=== PATIENT | male | born 1950 | race Two or more races ===

== ENCOUNTER 2024-09-13 16:44 | Observation (INO) | payer OTHER, SELFPAY ==
[2024-09-13] VITALS (8 sets, daily range): BP systolic 162–204; BP diastolic 63–94; PULSE 60–67; RESP 17–97; TEMP 36.4–36.7; O2SAT 95–98; BMI 35.9
--- NOTE | 2024-09-13 17:49 | XR_ITS ---
Examination: CT brain head without contrast. 2-D sagittal coronal reconstructions Date and time of exam:September 13, 2024 1800 hrs. Indications: Sudden onset loss of vision left eye today CTDI: vol (mGy):55.4 DLP: (mGycm):1225 Technique: Multiple CT axial sections of the brain have been obtained, 5 mm slice thickness. Contrast has not been administered. 2-D sagittal, coronal reconstructions have been obtained Low dose protocols were performed. One or more of the following dose reduction techniques were used; automated exposure control, adjustment of the mA and/or KV according to patient size, use of iterative reconstruction technique. Findings: No significant ventricular enlargement. Intra-axial or extra-axial hemorrhage density is not seen. No mass effect or midline shift Basal cisterns are not remarkable. Fourth ventricle is midline. Cranial vault intact. Impression: Negative for acute hemorrhage, mass effect or midline shift As clinically warranted, brain MRI MRA without contrast follow-up would best assess for acute ischemic change as well as assess for left eye retinal detachment
--- NOTE | 2024-09-13 17:49 | EKG_ITS ---
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1950 Requested By: Leelee Denise ([facility]) Delmis Order Number: [id number] Reading MD: Leelee Denise ([facility]) Delmis Measurements Intervals [place] Rate: 60 P: 56 KS: 211 QRS: -27 QRSD: 97 T: 68 QT: 412 QTc: 414 Interpretive Statements SINUS RHYTHM WITH FIRST DEGREE AV BLOCK BORDERLINE LEFT AXIS DEVIATION [QRS AXIS < -20] POSSIBLE LEFT VENTRICULAR HYPERTROPHY [VOLTAGE CRITERIA PLUS LAE OR QRS WIDENING] NONSPECIFIC T-WAVE ABNORMALITY Compared to ECG 04/17/2023 09:30:32 First degree AV block now present T-wave abnormality now present Sinus bradycardia no longer present Intraventricular conduction delay no longer present /store/S0/[id number]/[id number].pdf
--- NOTE | 2024-09-13 17:49 | PD.EDRME ---
Rapid Medical Screening Exam [facility] Arrival date/time: 09/13/24 16:44 73-year-old male presents to the emergency department with complaints of visual changes to his left eye suddenly around 4 PM. History of hypertension. I have greeted and performed a focused initial assessment of this patient. Initial appropriate labs ordered at this time. A comprehensive ED assessment and evaluation of the patient and analysis of all test and completion of medical decision making process will be conducted by additional ED provider. Chief Complaint: Eye Problems Vital signs: Vital Signs Temperature 98.1 F 09/13/24 17:25 Pulse Rate 63 09/13/24 17:25 Respiratory Rate 19 09/13/24 17:25 Blood Pressure 174/76 H 09/13/24 17:25 Pulse Oximetry (%) 98 09/13/24 17:25 Oxygen Delivery Method Room Air 09/13/24 17:25
--- NOTE | 2024-09-13 18:25 | PC.NURSE ---
PT HERE WITH C/O SUDDEN ONSET LOSS OF VISION TO LEFT EYE AROUND 1600 TODAY. PT DESCRIBES IT WHEN YOU LOOK AT A BRIGHT LIGHT THEN AWAY, IT TAKES YOUR EYE TIME TO READJUST. ALSO STATES IT'S GETTING A LITTLE BETTER. 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
[2024-09-13 18:27] LABS: Collection Type, Urine Clean Catch
[2024-09-13 18:39] LABS: Basophils % (Auto) 1 % (0-2.5); Eosinophils # (Auto) 0.2 Thou/mm3 (0.0-0.5); Eosinophils % (Auto) 3 % (0-10); Hematocrit 47.5 % (41.0-53.0); Hemoglobin 16.3 g/dL (13.5-16.0); Immature Granulocytes % (Auto) 1 % (0-0); Immature Granulocytes Auto 0.05 Thou/mm3 (0.00-0.00); Lymphocytes # (Auto) 2.7 Thou/mm3 (1.0-4.8); Lymphocytes % (Auto) 31 % (10-50); Mean Corpuscular HGB Conc 34.3 g/dl (31.0-37.0); Mean Corpuscular Hemoglobin 29.4 pg (25.0-35.0); Mean Corpuscular Volume 86 fL (80-100); Monocytes # (Auto) 1.1 Thou/mm3 (0.0-0.8); Monocytes % (Auto) 13 % (0-12); Neutrophils # (Auto) 4.5 Thou/mm3 (1.8-7.7); Neutrophils % (Auto) 53 % (37-80); Nucleated Red Blood Cell % 0 /100 WBC (0); Platelet Count 211 Thou/mm3 (140-440); Red Blood Count 5.55 Miln/mm3 (4.50-5.90); White Blood Count 8.5 Thou/mm3 (3.8-10.6)
[2024-09-13 18:45] LABS: Bilirubin,Urine Negative (Negative); Blood,Urine Negative (Negative); Clarity,Urine Clear (Clear/Hazy); Color,Urine Yellow (Lt Yel-Yel); Glucose, Urine Negative (Negative); Hyaline Casts,Urine < 1 /hpf (0-1); Ketones,Urine Negative (Negative); Leukocyte Esterase,Urine Negative (Negative); Nitrite,Urine Negative (Negative); Protein,Urine 1+ (Neg - Trace); RBC,Urine 2 /hpf (0-3); Specific Gravity,Urine 1.022 (1.001-1.035); Squamous Epithelial Cell,Urine 1 /hpf (0-5); Urobilinogen,Urine Negative mg/dL (0.0-1.0); WBC,Urine 1 /hpf (0-5)
[2024-09-13 18:47] LABS: Alanine Aminotransferase 30 U/L (10-49); Albumin, Serum 4.6 gm/dL (3.4-4.8); Albumin/Globulin Ratio 1.5 (1.2-2.2); Alkaline Phosphatase 133 U/L (46-116); Anion Gap 6 (7-16); Aspartate Amino Transferase 13 U/L (0-34); BUN/Creatinine Ratio 11 Ratio (12-20); Bilirubin,Total 0.5 mg/dL (0.3-1.2); Blood Urea Nitrogen 14 mg/dL (9-23); Calcium 10.1 mg/dL (8.3-10.6); Calcium (Corrected) 10.1 mg/dL (8.5-10.1); Carbon Dioxide 26.2 mMol/L (20.0-31.0); Chloride 106 mMol/L (98-107); Creatinine (Component) 1.3 mg/dL (0.6-1.3); Estimated Creatinine Clearance 61.9 mL/min (>60); Globulin 3.1 gm/dL (2.3-3.5); Glucose 105 mg/dL (74-106); Osmolality,Calculated 276 (275-295); Potassium 4.1 mMol/L (3.4-5.1); Sodium 138 mMol/L (136-145); Total Protein 7.7 gm/dL (5.7-8.2); Troponin I < 0.020 ng/mL (0.0-0.045); eGFR 57 See Note
[2024-09-13 19:12] LABS: Partial Thromboplastin Time 27.1 Seconds (22.0-36.0); Prothrombin Time 10.9 Seconds (9.0-12.2)
--- NOTE | 2024-09-13 19:19 | EDNOTE_ITS ---
ED Eye Problem RME/HPI General Chief complaint: Eye Problems Stated complaint: SUDDEN LOSS VISION LEFT EYE LIKE FLASH WENT OFF Arrival date/time: 09/13/24 16:44 Limitations: no limitations RME / HPI RME / HPI Narrative: 09/13/24 16:44 73-year-old male presents to the emergency department with complaints of visual changes to his left eye suddenly around 4 PM. History of hypertension. I have greeted and performed a focused initial assessment of this patient. Initial appropriate labs ordered at this time. A comprehensive ED assessment and evaluation of the patient and analysis of all test and completion of medical decision making process will be conducted by additional ED provider. Dr. Parra's Main ED Evaluation: 73-year-old male with a history of hypertension on aspirin left eye loss of vision that was sudden the patient with a flash going on. Darkness in the left eye until right now. Currently symptoms are still present but improved. No headache, nausea, vomiting, pain, numbness or weakness The patient has not not had symptoms like this before. Patient states he does not take aspirin. Past medical history: Hypertension, High cholesterol No history of stroke, No history of diabetes Related Data Home Medications ?Medication ?Instructions ?Recorded ?Confirmed Aspirin Ec * (ECOTRIN *) 81 mg PO QDAY ##0 08/12/16 10/10/19 amlodipine 10 mg tablet (Norvasc) 10 mg PO QDAY #0 tabs 08/12/16 10/10/19 alprazolam 0.5 mg tablet (Xanax) 0.5 mg PO .PRN 08/16/19 10/10/19 losartan 100 1 tab PO QDAY 08/16/19 10/10/19 mg-hydrochlorothiazide 25 mg tablet tamsulosin 0.4 mg capsule 0.4 mg PO QDAY 08/16/19 10/10/19 Allergies Allergy/AdvReac Type Severity Reaction Status Date / Time NKA* Allergy Uncoded 09/13/24 16:47 Review of Systems Review of Systems Systems Reviewed: All systems reviewed, normal except as documented Past Medical History Past Medical History CARDIAC: Positive Hypercholesterolemia and Hypertension; Negative Congestive Heart Failure RESPIRATORY: Negative Chronic Obstructive Pulmonary Disease (COPD) GENITOURINARY: Negative Renal Disease ENDOCRINE: Negative Diabetes Mellitus Type 1 or Diabetes Mellitus Type 2 Social History SMOKING STATUS: Never smoker ED Exam Narrative Physical exam: Current blood pressure 162/63. Sitting in the bed in no acute distress. General Limitations: Present no limitations General appearance: Present alert and in no apparent distress Head Head exam: Present atraumatic Eye Eye exam: Present normal appearance, PERRL and EOMI ENT ENT exam: Present normal exam, normal oropharynx and mucous membranes moist Neck Neck exam: Present normal inspection, full ROM and trachea midline Chest Chest inspection: Present normal inspection and symmetric chest wall rise Respiratory Respiratory exam: Present normal lung sounds bilaterally Cardiovascular Cardiovascular exam: Present regular rate, normal rhythm and normal heart sounds Abdominal Exam Abdominal exam: Present soft and normal bowel sounds Extremities Exam Extremities exam: Present normal inspection and full ROM Back Exam Back exam: Present normal inspection and full ROM Neurological Exam Neurological exam: Present alert, oriented X3 and CN II-XII intact Psychiatric Psychiatric exam: Present normal affect and normal mood Skin Skin exam: Present warm, dry, intact and normal color Course Quality Measures none Orders Category Date Time Status Bedside Blood Glucose NOW Care 09/13/24 17:49 Completed Bedside Blood Glucose NOW Care 09/13/24 19:31 Completed COVID-19 Screening Questionnaire NOW Care 09/13/24 20:56 Active Health Information Manager NOW Care 09/13/24 19:31 Completed Health Information Manager STAT Care 09/13/24 17:49 Completed Continuous Pulse Oximetry NOW Care 09/13/24 19:31 Completed Decision to Admit X1 Care 09/13/24 20:56 Completed EKG (ED ONLY) *Do not use* NOW Care 09/13/24 17:49 Completed Insert IV NOW Care 09/13/24 19:31 Completed NIH Stroke Scale now Care 09/13/24 19:31 Completed Nurse Swallow Screen x1 Care 09/13/24 19:31 Active Consult to Neurology / Tele-Neurology Routine Cons 09/13/24 19:[address] angio stroke protocol Stat Exams 09/13/24 19:[address] head/brain wo con Stat Exams 09/13/24 17:49 Completed EKG (ED Only) Stat Exams 09/13/24 17:49 Draft CBC Stat Lab 09/13/24 18:10 Completed CBC Stat Lab 09/13/24 20:08 Completed Comprehensive Metabolic Panel Stat Lab 09/13/24 18:10 Completed Partial Thromboplastin Time Stat Lab 09/13/24 18:10 Completed Prothrombin Time with INR Stat Lab 09/13/24 18:10 Completed Troponin I Stat Lab 09/13/24 18:10 Completed Urinalysis Stat Lab 09/13/24 18:22 Completed Aspirin Med 09/13/24 21:01 Discontinued 325 mg PO X1 ONE Clopidogrel [Plavix] Med 09/13/24 20:54 Discontinued 300 mg PO X1 ONE LORazepam [Ativan] Med 09/13/24 20:52 Discontinued 2 mg PO X1 ONE Oxymetazoline [place] 0.05% [Afrin Nasal Ace] Med 09/13/24 20:59 Discontinued See Dose Instructions NASAL X1 ONE Vital Signs Vital signs: Vital Signs Temperature 98.1 F 09/13/24 17:25 Pulse Rate 63 09/13/24 17:25 Respiratory Rate 19 09/13/24 17:25 Blood Pressure 174/76 H 09/13/24 17:25 Pulse Oximetry (%) 98 09/13/24 17:25 Oxygen Delivery Method Room Air 09/13/24 17:25 Pulse ox is 98% on room air, which is normal according to my interpretation. Procedures -ED EKG Interpretation #1: Date of EK09/13/24 Time of EK:57 Rate: 60 Interpretation: Interpreted by me Additional EKG comment: Normal sinus rhythm. First-degree AV block. There are interval is abnormal at 211. LVH. QTc is 414. No ST elevation or depressions. Impression no ST elevation CO. First-degree AV block Eye MDM Narrative MDM Narrative:: Prior to my arrival, the patient had a CT scan ordered. On my evaluation of this patient 1900 stroke alert called. Last known normal 4p. Patient is not a tPA candidate since symptoms are improving. 1919: CT angio ordered. Dr. Erickson the teleneurologist is evaluating the patient. time: CT angio Differential diagnosis includes: Stroke, problems with his peripheral vision, TIA, hypertensive urgency or emergency, migraine headache, 2100: Patient initially wanted to leave against medical vice however because he has a history of anxiety. As long as he can get his anxiety medicine he agrees to stay. Patient is given 300 mg of Plavix and 325 aspirin. Please see further neurology recommendations for stroke workup. Patient data External records reviewed:: [facility] previous records (Per chart review, patient has no previous ED visits or admissions to this facility.) Clinical information provided by:: patient Social determinants that could affect healthcare access:: none Patient has the following chronic illnesses:: HTN, HLD How is presenting disease/condition affected by chronic disease/condition?: exacerbated by Evaluation data The following diagnostics were reviewed and interpreted by me:: lab results and radiology exam(s) Lab and/or radiology exams considered but not ordered:: None Interpretation Summary: Labs are reviewed and interpreted by me. No leukocytosis, thrombocytopenia, or anemia. Electrolytes are normal. Protein in your urine which is abnormal. CT brain head without contrast. 2-D sagittal coronal reconstructions Date and time of exam:September 13, 2024 1800 hrs. Indications: Sudden onset loss of vision left eye today CTDI: vol (mGy):55.4 DLP: (mGycm):1225 Technique: Multiple CT axial sections of the brain have been obtained, 5 mm slice thickness. Contrast has not been administered. 2-D sagittal, coronal reconstructions have been obtained Low dose protocols were performed. One or more of the following dose reduction techniques were used; automated exposure control, adjustment of the mA and/or KV according to patient size, use of iterative reconstruction technique. Findings: No significant ventricular enlargement. Intra-axial or extra-axial hemorrhage density is not seen. No mass effect or midline shift Basal cisterns are not remarkable. Fourth ventricle is midline. Cranial vault intact. Impression: Negative for acute hemorrhage, mass effect or midline shift As clinically warranted, brain MRI MRA without contrast follow-up would best assess for acute ischemic change as well as assess for left eye retinal detachment Dictated By: Julio Benavides MD Signed By: <Electronically signed by Julio Benavides MD in OV> 09/13/241808 DD/ 07 TD/TT: 09/13/241807 [employer] Specialist: TROY [place] [facility] Report Signed Patient: JM JOHNSON. Record#: [id number] Birthdate: 1950 Age/Sex: 73 / M Location: [facility] Attending Dr: Ordering Physician: Araina Medina MD Date of Service: 09/13/24 Procedure(s): CT angio stroke protocol Accession Number(s): [id number] cc: Julio Benavides MD; Ariana Medina MD; Ariana Fraire MD~ Examination: CTA carotids with intravenous contrast CTA brain, head with intravenous contrast. 2-D sagittal, coronal reconstructions. 3-D reconstructions. Exam date and time: September 13, 2024 1948 hrs. Indications: Stroke alert, sudden onset loss of vision in the left side today CTDI: vol (mGy) 11.1 DLP: (mGycm) 433 Technique: Multiple CTA axial brain, head carotid images post intravenous contrast injection 100 cc, Isovue-370. 2-D sagittal, coronal reconstructions. 3-D reconstructions, 3-D post processing including vascular maximum intensity projection images. Low dose protocols were performed. One or more of the following dose reduction techniques were used; automated exposure control, adjustment of the mA and/or KV according to patient size, use of iterative reconstruction technique. Findings: 50-70% stenosis of the right common carotid carotid bifurcation origin right internal carotid artery No significant left common carotid carotid bifurcation or internal carotid artery stenoses Codominant vertebral arteries with no critical stenoses Poor filling of left middle cerebral artery branches which may be technical M1 segments appear grossly intact as well as basilar artery posterior cerebral branches and anterior cerebral arteries Impression: 50-70% stenosis right common carotid carotid bifurcation in origin right internal carotid arteries Very poor filling of left middle cerebral artery branches which may be technical, clinical correlation advised Recommend brain MRI MRA without contrast follow-up Dictated By: Julio Benavides MD Signed By: <Electronically signed by Julio Benavides MD in OV> 09/13/242010 Medications / Prescriptions Medications or Prescriptions considered but not ordered:: none Medication administrations:: Medication Administration History Acetaminophen (Acetaminophen 325 Mg Tablet) 650 mg PO Q6H PRN PRN Reason: Fever >101.5 Stop: 10/13/24 21:53 Acetaminophen (Acetaminophen 325 Mg Tablet) 650 mg PO Q6H PRN PRN Reason: PAIN SCALE 1-3 (mild Stop: 10/13/24 21:53 Heparin Sodium (Porcine) (Heparin Sod Inj 5000 Unit/Ml Vial) 5,000 unit SC Q8HR [facility] Stop: 09/27/24 21:59 Ondansetron HCl (Ondansetron Inj 2 Mg/Ml Inj 2 Ml) 4 mg IV Q6H PRN; Protocol PRN Reason: NAUSEA OR VOMITING Stop: 10/13/24 21:53 Pantoprazole Sodium (Pantoprazole 40 Mg Tablet) 40 mg PO QDAY [facility] Stop: 10/14/24 08:59 Discontinued Medications Aspirin (Aspirin 325 Mg Tablet) 325 mg PO X1 ONE Stop: 09/13/24 21:02 Last Admin: 09/13/24 21:08 Dose: 325 mg Documented By: CVL Clopidogrel Bisulfate (Clopidogrel Bisulfate 75 Mg Tablet) 300 mg PO X1 ONE Stop: 09/13/24 20:55 Last Admin: 09/13/24 21:03 Dose: 300 mg Documented By: CVL Lorazepam (Lorazepam 0.5 Mg Tablet) 2 mg PO X1 ONE Stop: 09/13/24 20:53 Last Admin: 09/13/24 21:02 Dose: 2 mg Documented By: CVL Oxymetazoline HCl (Oxymetazoline [place] 0.05% 15 Ml Btl) 0 spray NASAL X1 ONE Stop: 09/13/24 21:00 see above Consultations Consultation(s) initiated? (list below): Yes Consultation #1 (Physician, Specialty, Details): Discussed case with [Dr. Erickson] from [teleneurology] regarding [consultation]. Discussed patients ED course, exam findings, labs, and radiology results. Recommends CT angiogram, Time: 19:00 Consultation #2 (Physician, Specialty, Details): Discussed case with [Dr. Ramsay, attending Dr. Huizar] from Hospitalist service regarding admission. Discussed patients ED course, exam findings, labs, and radiology results. The Hospitalist [agrees] to accept the patient for admission. Time: 21:03 Diagnosis Eye Problem Differential Diagnosis: other (See above) Most likely diagnosis given after review of the tests above:: Retinal artery occlusion, left vision changes, possible stroke Admission Indicated Admission indicated?: indicated Explain why admission is indicated or not indicated:: Patient with strokelike symptoms. Admission Request Was there a request for admission?: Yes Admission Attestation Admission request attestation: Discussed case with [] from Hospitalist service regarding admission. Discussed patients ED course, exam findings, labs, and radiology results. The Hospitalist [agrees,declines] to accept the patient for admission. Disposition Plan Disposition Plan: Admit Critical Care Time Critical Care Time Total Critical Care Time (min.): 45 Attestation: This patient required the highest level of my preparedness for sudden and emergent intervention. I provided critical care services, which included ordering, reviewing, and interpreting of laboratory studies in real time. Determining immediate treatments, planning for future treatments and observing response to therapy. Further diagnostic tests and treatments were made based on laboratory studies and response to therapy. I coordinated care with various consultants. This critical care time is separate from any other billable procedures or interventions. Discharge Plan Plan Patient Disposition: Admit Acute Care w/in Hospital Patient condition on transfer: Stable Problem List Clinical Impression: Blurred vision, left eye, Hypertension, Acute retinal artery occlusion
--- NOTE | 2024-09-13 19:26 | PC.NURSE ---
stroke consult case # [id number]
--- NOTE | 2024-09-13 19:31 | XR_ITS ---
Examination: CTA carotids with intravenous contrast CTA brain, head with intravenous contrast. 2-D sagittal, coronal reconstructions. 3-D reconstructions. Exam date and time: September 13, 2024 1948 hrs. Indications: Stroke alert, sudden onset loss of vision in the left side today CTDI: vol (mGy) 11.1 DLP: (mGycm) 433 Technique: Multiple CTA axial brain, head carotid images post intravenous contrast injection 100 cc, Isovue-370. 2-D sagittal, coronal reconstructions. 3-D reconstructions, 3-D post processing including vascular maximum intensity projection images. Low dose protocols were performed. One or more of the following dose reduction techniques were used; automated exposure control, adjustment of the mA and/or KV according to patient size, use of iterative reconstruction technique. Findings: 50-70% stenosis of the right common carotid carotid bifurcation origin right internal carotid artery No significant left common carotid carotid bifurcation or internal carotid artery stenoses Codominant vertebral arteries with no critical stenoses Poor filling of left middle cerebral artery branches which may be technical M1 segments appear grossly intact as well as basilar artery posterior cerebral branches and anterior cerebral arteries Impression: 50-70% stenosis right common carotid carotid bifurcation in origin right internal carotid arteries Very poor filling of left middle cerebral artery branches which may be technical, clinical correlation advised Recommend brain MRI MRA without contrast follow-up
--- NOTE | 2024-09-13 20:11 | ESPR_ITS ---
Tele Neuro Progress Note Progress Note Date 09/13/24 Most Recent Vital Signs Last Vital Signs Temp 98.1 F 09/13/24 17:25 Pulse 65 09/13/24 19:32 Resp 18 09/13/24 19:00 BP 202/94 H 09/13/24 19:39 Pulse Ox 97 09/13/24 19:00 O2 Del Method Room Air 09/13/24 19:00 Laboratory-Coagulation Panel PT 10.9 Seconds (9.0-12.2) 09/13/24 18:10 INR 1.0 (0.9-1.3) 09/13/24 18:10 APTT 27.1 Seconds (22.0-36.0) 09/13/24 18:10 Progress Note Narrative [facility] Consult Services Patient Name:???jamarcus youssef Date of :???1950 Date of Service:???09/13/2024 19:26:19 Diagnosis:?I63.89 - Cerebrovascular accident (CVA) due to other mechanism (HCCC) Impression: ?73 M with HTN, HLD, who presents with L vision loss. Symptoms have significantly improved however patient still has mild deficits in L eye. Presentation concerning for retinal artery occlusion vs other ophthalmologic issue. ? ?Recommendations: ?--aspirin 325 mg + plavix 300 mg now; continue aspirin 81 mg +plavix 75 mg daily for now ?--recommend admission for stroke workup ? Stroke/Telemetry Floor ? Neuro Checks ? Bedside Swallow Eval ? DVT Prophylaxis ? IV Fluids, Normal Saline ? Head of Bed 30 Degrees ? Euglycemia and Avoid Hyperthermia (PRN Acetaminophen) Sign Out: ? Discussed with Emergency Department Provider Advanced Imaging: CTA Head and Neck Completed. LVO:No Patient in not a candidate for JAZMIN Metrics: Last Known Well: 09/13/2024 16:00:00 Dispatch Time: 09/13/2024 19:26:19 Arrival Time: 09/13/2024 17:35:00 Initial Response Time: 09/13/2024 19:27:09Symptoms: L eye vision changes. Initial patient interaction: 09/13/2024 19:27:09 NIHSS Assessment Completed: 09/13/2024 19:35:00Patient is not a candidate for Thrombolytic. Thrombolytic Medical Decision: 09/13/2024 19:35:00Patient was not deemed candidate for Thrombolytic because of following reasons: Stroke severity too mild (non-disabling) . CT head showed no acute hemorrhage or acute core infarct. Primary Provider Notified of Diagnostic Impression and Management Plan on: 09/13/2024 20:10:18 History of Present Illness:Patient is a 73 year old Male. Patient was brought by private transportation with symptoms of L eye vision changes. 73 M with history HTN, HLD who presents with left eye loss of vision. Onset was at 4pm He was reading. No pain. [place] like a shadow in the vision. and then it slowly improved over 2.5 hours. Vision currently is about 90% back to normal. No visual field deficits. He has been ambulatory and otherwise no concerns. Past Medical History: ?Hypertension ?Hyperlipidemia Medications: No Anticoagulant use? No Antiplatelet use Reviewed EMR for current medications Allergies:? Reviewed Social History: Smoking: No Alcohol Use: No Drug Use: No Family History: There is no family history of premature cerebrovascular disease pertinent to this consultation ROS : 14 Points Review of Systems was performed and was negative except mentioned in HPI. Past Surgical History: There Is No Surgical History Contributory To Today?s Visit Examination: BP(162/63),?Pulse(80), 1A: Level of Consciousness - Alert; keenly responsive?+ 0 1B: Ask Month and Age - Both Questions Right?+ 0 1C: Blink Eyes & Squeeze Hands - Performs Both Tasks?+ 0 2: Test Horizontal Extraocular Movements - Normal?+ 0 3: Test Visual [place] - No Visual Loss?+ 0 4: Test Facial Palsy (Use Grimace if Obtunded) - Normal symmetry?+ 0 5A: Test Left Arm Motor Drift - No Drift for 10 Seconds?+ 0 5B: Test Right Arm Motor Drift - No Drift for 10 Seconds?+ 0 6A: Test Left Leg Motor Drift - No Drift for 5 Seconds?+ 0 6B: Test Right Leg Motor Drift - No Drift for 5 Seconds?+ 0 7: Test Limb Ataxia (FNF/Heel-[place]) - No Ataxia?+ 0 8: Test Sensation - Normal; No sensory loss?+ 0 9: Test Language/Aphasia - Normal; No aphasia?+ 0 10: Test Dysarthria - Normal?+ 0 11: Test Extinction/Inattention - No abnormality?+ 0 NIHSS Score:?0 Pre-Morbid Modified [place] Scale:1 Points = No significant disability despite symptoms; able to carry out all usual duties and activities Spoke with :?ED MD This consult was conducted in real time using interactive audio and video technology. Patient was informed of the technology being used for this visit and agreed to proceed. Patient located in hospital and provider located at [facility]/office setting. Patient is being evaluated for possible acute neurologic impairment and high probability of imminent or life-threatening deterioration. I spent total of 35 minutes providing care to this patient, including time for face to face visit via telemedicine, review of medical records, imaging studies and discussion of findings with providers, the patient and/or family. Dr Bird Erickson [facility] For Inpatient follow-up with [facility] physician please call [facility] at . As we are not an outpatient service for any post hospital discharge needs please contact the hospital for assistance. If you have any questions for the [facility] physicians or need to reconsult for clinical or diagnostic changes please contact us via [facility] at .
[2024-09-13 20:31] LABS: Basophils # (Auto) 0.1 Thou/mm3 (0.0-0.2); Basophils % (Auto) 1 % (0-2.5); Eosinophils # (Auto) 0.3 Thou/mm3 (0.0-0.5); Eosinophils % (Auto) 3 % (0-10); Hematocrit 48.6 % (41.0-53.0); Hemoglobin 16.7 g/dL (13.5-16.0); Immature Granulocytes % (Auto) 1 % (0-0); Immature Granulocytes Auto 0.04 Thou/mm3 (0.00-0.00); Lymphocytes # (Auto) 2.8 Thou/mm3 (1.0-4.8); Lymphocytes % (Auto) 32 % (10-50); Mean Corpuscular HGB Conc 34.4 g/dl (31.0-37.0); Mean Corpuscular Hemoglobin 29.1 pg (25.0-35.0); Mean Corpuscular Volume 85 fL (80-100); Monocytes % (Auto) 11 % (0-12); Neutrophils # (Auto) 4.7 Thou/mm3 (1.8-7.7); Neutrophils % (Auto) 53 % (37-80); Nucleated Red Blood Cell % 0 /100 WBC (0); Platelet Count 215 Thou/mm3 (140-440); RDW Standard Deviation 40.2 fL (35.1-43.9); Red Blood Count 5.73 Miln/mm3 (4.50-5.90); White Blood Count 8.9 Thou/mm3 (3.8-10.6)
[2024-09-13] MEDS: LORazepam 0.5 MG TABLET 2 MG PO (21:02)
[2024-09-13] MEDS: CLOPIDOGREL BISULFATE 75 MG TABLET 300 MG PO (21:03)
[2024-09-13] MEDS: Aspirin 325 MG TABLET PO (21:08)
--- NOTE | 2024-09-13 22:09 | PD.RESHP ---
Documentation for date of: 09/13/24 HPI History of Present Illness History of present illness: 73-year-old male patient with significant medical history for hypertension, anxiety and hyperlipidemia came to ED for painless left vision loss. Patient experienced sudden left eye vision loss around 4 PM with no other associate symptoms and thus came to ED. While in ED patient's vision loss improved. Patient denies having similar symptoms in the past, denied headache, chest pain/pressure, palpitations, nausea, vomiting, abdominal pain or other associate symptoms. 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 Head CT was negative for hemorrhage, head neck CTA indicated: 50-70% stenosis right common carotid carotid bifurcation in origin right internal carotid arteries, Very poor filling of left middle cerebral artery branches. Neuro telemetry was consulted, NIHSS score was 0, further recommendation was made to admit patient for stroke workup, loaded with aspirin and Plavix. Patient admitted to telemetry, MRI of the brain without contrast and echocardiogram with bubble study ordered. Medical Hx: Hypertension, hyperlipidemia, anxiety Medication (need reconciliation): Amlodipine, Bystolic, losartan-hydrochlorothiazide, niacin, gemfibrozil Surgeries: Appendectomy, bilateral cataract surgery (2022), left knee surgery Social Hx: Smokes marijuana intermittently, drinks 6 beers intermittently (last drink yesterday), denies using other illicit drugs Allergies: NKDA CODE STATUS: Full code Review of Systems Review of Systems Systems Reviewed: All systems reviewed, normal except as documented Exam Vital Signs Temp Pulse Resp BP Pulse Ox O2 Del Method 98.1 F 66 18 176/94 H 95 Room Air 09/13/24 17:25 09/13/24 20:16 09/13/24 20:16 09/13/24 20:16 09/13/24 20:16 09/13/24 20:16 Narrative Exam Constitutional: well-developed, well-nourished, in no acute distress, lying in bed HEENT: NCAT, EOMI, reactive round pupils b/l, patent nares b/l, moist mucous membranes Lung: CTAB, no wheezing, no rhonchi Heart: Regular S1S2, no murmurs, gallops, or rubs Abdomen: Soft, non-distended, non-tender, bowel sounds present throughout Extremities: No cyanosis, clubbing, or edema, LE pulses present b/l Neurologic: No focal sensory or motor deficits noted, AOx3, appropriate affect Skin: Warm, dry, no lesions or rashes noted Detailed Eye Exam Visual acuity: Visual Acuity Visual Acuity Uncorrected [ 20/20 Bilateral] Visual Acuity Uncorrected [ 20/20 Right] Visual Acuity Uncorrected [ 20/100 Left] Visual Acuity Corrected [ 20/20 Bilateral] Visual Acuity Corrected [Right 20/25 ] Visual Acuity Corrected [Left] 20/70 Results: Labs 09/13/24 20:08 09/13/24 18:10 Labs: Short CBC 09/13/24 09/13/24 Range/Units 18:10 20:08 WBC 8.5 8.9 (3.8-10.6) Thou/mm3 Hgb 16.3 H 16.7 H (13.5-16.0) g/dL Hct 47.5 48.6 (41.0-53.0) % Plt Count 211 215 (140-440) Thou/mm3 BMP 09/13/24 18:10 Sodium 138 Potassium 4.1 Chloride 106 Carbon Dioxide 26.2 BUN 14 Creatinine 1.3 Glucose 105 Calcium 10.1 Cardiac Enzymes 09/13/24 Range/Units 18:10 Troponin I < 0.020 (0.0-0.045) ng/mL Liver Function 09/13/24 Range/Units 18:10 Total Bilirubin 0.5 (0.3-1.2) mg/dL AST 13 (0-34) U/L ALT 30 (10-49) U/L Alkaline Phosphatase 133 H (46-116) U/L Albumin 4.6 (3.4-4.8) gm/dL Urine 09/13/24 Range/Units 18:22 Urine Color Yellow (Lt Yel-Yel) Urine Clarity Clear (Clear/Hazy) Urine pH 6.0 (5.0-7.0) Ur Specific [place] 1.022 (1.001-1.035) Urine Protein 1+ A (Neg - Trace) Urine Glucose (UA) Negative (Negative) Quality Measures Quality Measures VTE prophylaxis Advance care planning discussed with:: patient Medications Home Medications and Allergies Home Medications ?Medication ?Instructions ?Recorded ?Confirmed ?Type amlodipine 10 mg tablet (Norvasc) 10 mg PO QDAY #0 tabs 08/12/16 09/13/24 History losartan 100 1 tab PO QDAY 08/16/19 09/13/24 History mg-hydrochlorothiazide 25 mg tablet gemfibrozil 600 mg tablet 600 mg PO BID 09/13/24 09/13/24 History nebivolol 20 mg tablet (Bystolic) 20 mg PO QDAY 09/13/24 09/13/24 History niacin 500 mg capsule,extended 500 mg PO QDAY 09/13/24 09/13/24 History release Allergies Allergy/AdvReac Type Severity Reaction Status Date / Time NKA* Allergy Uncoded 09/13/24 16:47 Visit Medications Acetaminophen (Acetaminophen 325 Mg Tablet) 650 mg PO Q6H PRN PRN Reason: Fever >101.5 Stop: 10/13/24 21:53 Acetaminophen (Acetaminophen 325 Mg Tablet) 650 mg PO Q6H PRN PRN Reason: PAIN SCALE 1-3 (mild Stop: 10/13/24 21:53 Heparin Sodium (Porcine) (Heparin Sod Inj 5000 Unit/Ml Vial) 5,000 unit SC Q8HR [facility] Stop: 09/27/24 21:59 Ondansetron HCl (Ondansetron Inj 2 Mg/Ml Inj 2 Ml) 4 mg IV Q6H PRN; Protocol PRN Reason: NAUSEA OR VOMITING Stop: 10/13/24 21:53 Pantoprazole Sodium (Pantoprazole 40 Mg Tablet) 40 mg PO QDAY [facility] Stop: 10/14/24 08:59 Discontinued Medications Aspirin (Aspirin 325 Mg Tablet) 325 mg PO X1 ONE Stop: 09/13/24 21:02 Last Admin: 09/13/24 21:08 Dose: 325 mg Clopidogrel Bisulfate (Clopidogrel Bisulfate 75 Mg Tablet) 300 mg PO X1 ONE Stop: 09/13/24 20:55 Last Admin: 09/13/24 21:03 Dose: 300 mg Lorazepam (Lorazepam 0.5 Mg Tablet) 2 mg PO X1 ONE Stop: 09/13/24 20:53 Last Admin: 09/13/24 21:02 Dose: 2 mg Oxymetazoline HCl (Oxymetazoline Lio Chambers 0.05% 15 Ml Btl) 0 spray NASAL X1 ONE Stop: 09/13/24 21:00 Assessment & Plan Plan 73-year-old male patient with significant medical history for hypertension, hyperlipidemia and anxiety came to ED for left vision loss. Patient admitted for stroke workup. #Acute CVA #Stroke Patient with painless left vision loss that started at [address] negative for acute hemorrhage or midline shift Head neck CTA indicated: 50-70% stenosis right common carotid carotid bifurcation in origin right internal carotid arteries, Very poor filling of left middle cerebral artery branches In ED patient loaded with aspirin and Plavix Plan: -Patient admitted to telemetry -Neurochecks every 4 hours -HgB A1c and Lipid panel ordered -DVT prophylaxis -Continue Plavix 70 mg, ASA 81 mg, atorvastatin 80 mg -Head of bed 30 degrees -Q4hr neurochecks -Seizure precautions -TTE with bubble study ordered -Speech therapy and physical therapy ordered -Brain MRI w/o contrast ordered #Hypertension Plan: Restart home meds after reconciliation #Hyperlipidemia Plan: Restart home meds after reconciliation Health Maintenance Dispo: Patient admitted for stroke workup, echocardiogram with bubble study ordered Diet: Regular diet after bedside swallow DVT/PPx: Heparin GI ppx: Protonix Lines: PIV Code Status: Full code This patient care was discussed with my attending Dr. Berry Ramsay MD PGY-2 Disclaimer: Minor errors in director life may be present since this note was dictated by speech recognition software. Attending Provider Attestation/Addendum 73-year-old male patient with chronic anxiety disorder, hypertension hyperlipidemia, alcohol use was at the [facility] past few days. He said he has been drinking beer and some liquor. The patient was using his iPad today reading he has had not had monocular visual loss. He felt like there was a bright light and then everything was blurry and dark scaring his peripheral vision. This lasted few hours. This never happened before. The patient had slow recovery of his visual acuity and he said he is almost back to normal when I saw him in the ER. He said he has been drinking alcoholic beverages while at the [facility] this weekend. CT scan of the brain is unremarkable. Teleneurology evaluated this patient. Stroke workup recommended. The patient was started on antiplatelet. He has anxiety disorder. He is scared that he will have panic attack while on MRI machine. DDx: Amaurosis fugax, TIA.
--- NOTE | 2024-09-13 22:30 | PC.NURSE ---
REPORT GIVEN TO JANICE FELDER AT TELE.
[2024-09-13] MEDS: HEPARIN SOD INJ 5000 UNIT/ML VIAL SC (23:03)
[2024-09-13] MEDS: OXYMETAZOLINE NAS SPRY 0.05% 15 ML BTL NASAL (23:45)
[2024-09-14] VITALS (9 sets, daily range): BP systolic 131–158; BP diastolic 56–94; PULSE 53–68; RESP 16–98; TEMP 36.2–36.5; O2SAT 95–99; BMI 37.3
--- NOTE | 2024-09-14 | XR_ITS ---
Examinations: MRI Brain without intravenous contrast. MRA brain without intravenous contrast. MRA carotids without intravenous contrast 3-D vascular reconstructions Date and time of exam: September 14, 2024 1012 hrs. Indications: Sudden onset vision loss left eye 4:00 PM September 13, 2024 Technique: Multiple axial and sagittal images of the brain have been obtained MRA brain carotid images without contrast obtained, including 3-D postprocessing, vascular maximum intensity projection images Findings: [place] is not enlarged. The optic chiasm and infundibular stalk are not remarkable. Prepontine and interpeduncular cisterns are not enlarged. No localized enlargement of the medulla or alphonso. Fourth ventricle and cerebellar tonsils normal in position. Subacute hemorrhage is not seen. Fourth ventricle is midline. Mass in the cerebellopontine angle region is not evident. 7th and 8th nerve complexes exhibits symmetry. Globes are symmetrical with no retro-orbital mass. Increased white matter signal moderate Diffusion-weighted images demonstrate no focus of restricted diffusion No retinal detachment noted, although dedicated ophthalmologic funduscopic examination would be preferable in excluding retinal detachment Mass-effect upon the ventricular system is not identified. MRA carotid images severely degraded by patient motion. MRA brain images no large vessel occlusions Impression: Negative for acute hemorrhage, mass effect or midline shift No acute infarct Moderate chronic microvascular white matter change No cerebral large vessel arterial occlusions or thrombus
[2024-09-14] MEDS: HEPARIN SOD INJ 5000 UNIT/ML VIAL SC ×2 (05:53→21:19)
[2024-09-14 06:25] LABS: Basophils % (Auto) 1 % (0-2.5); Eosinophils # (Auto) 0.2 Thou/mm3 (0.0-0.5); Eosinophils % (Auto) 3 % (0-10); Hematocrit 46.2 % (41.0-53.0); Hemoglobin 15.6 g/dL (13.5-16.0); Immature Granulocytes % (Auto) 0 % (0-0); Immature Granulocytes Auto 0.02 Thou/mm3 (0.00-0.00); Lymphocytes # (Auto) 2.4 Thou/mm3 (1.0-4.8); Lymphocytes % (Auto) 36 % (10-50); Mean Corpuscular HGB Conc 33.8 g/dl (31.0-37.0); Mean Corpuscular Hemoglobin 29.2 pg (25.0-35.0); Mean Corpuscular Volume 87 fL (80-100); Monocytes # (Auto) 0.7 Thou/mm3 (0.0-0.8); Monocytes % (Auto) 11 % (0-12); Neutrophils # (Auto) 3.4 Thou/mm3 (1.8-7.7); Neutrophils % (Auto) 50 % (37-80); Nucleated Red Blood Cell % 0 /100 WBC (0); Platelet Count 178 Thou/mm3 (140-440); RDW Standard Deviation 41.3 fL (35.1-43.9); Red Blood Count 5.34 Miln/mm3 (4.50-5.90); White Blood Count 6.8 Thou/mm3 (3.8-10.6)
[2024-09-14 06:52] LABS: Alanine Aminotransferase 26 U/L (10-49); Albumin, Serum 4.4 gm/dL (3.4-4.8); Albumin/Globulin Ratio 1.5 (1.2-2.2); Alkaline Phosphatase 107 U/L (46-116); Anion Gap 6 (7-16); Aspartate Amino Transferase 16 U/L (0-34); BUN/Creatinine Ratio 12 Ratio (12-20); Bilirubin,Total 0.8 mg/dL (0.3-1.2); Blood Urea Nitrogen 13 mg/dL (9-23); Carbon Dioxide 24.9 mMol/L (20.0-31.0); Cardiac Risk Estimate 5.8 RATIO (4.0-6.7); Chloride 106 mMol/L (98-107); Cholesterol 228 mg/dL (132-200); Creatinine (Component) 1.1 mg/dL (0.6-1.3); Estimated Creatinine Clearance 74.6 mL/min (>60); Globulin 2.9 gm/dL (2.3-3.5); Glucose 109 mg/dL (74-106); Glucose Estimated Average 108 mg/dL (80-131); HDL Cholesterol 39 mg/dL (40-60); Hemoglobin A1C 5.4 % Hgb (4.8-6.0); LDL Cholesterol,Calculated 140 mg/dL (0-130); Osmolality,Calculated 274 (275-295); Phosphorous 3.2 mg/dL (2.4-5.1); Potassium 3.7 mMol/L (3.4-5.1); Sodium 137 mMol/L (136-145); Thyroid Stimulating Hormone 3.25 uIU/mL (0.55-4.78); Total Protein 7.3 gm/dL (5.7-8.2); Triglycerides 245 mg/dL (30-150); eGFR > 60 See Note
[2024-09-14] MEDS: PANTOPRAZOLE 40 MG TABLET PO (09:10)
--- NOTE | 2024-09-14 09:48 | PC.SS ---
Amadeo Yepez is a 73-year-old male admitted to [facility] for Vision Loss. SS conducted bedside contact with the patient to complete initial assessment and to discuss discharge planning. Patient confirmed demographic information. Patient identifies his Gabi Yepez [phone] as his surrogate decision maker. Patient resides at home with his . Pt states he is typically able to complete all ADL?s independently, no need for any source of DME. Pts PCP is Dr. Ariana Trevino (last visit about a few weeks ago) and pharmacy of choice is [facility] in [place]. DC option discussed and pt wishes to return home. Pts will provide transportation upon DC. No further intervention required at this time, social services director would be available to address any further concerns. DC Plan: Home Contact: Gaib Yepez [phone] PCP: Ariana Trevino
[2024-09-14] MEDS: DiphenhydrAMINE INJ 50 MG/ML VIAL 25 MG IVP (09:49)
[2024-09-14] MEDS: LORazepam 2 MG/ML VIAL 0.5 MG IVP (09:49)
--- NOTE | 2024-09-14 10:26 | PCS.ST ---
Order for as needed swallow evaluation. Pt is tolerating diet. NO dysphagia. No formal ST services warranted.
--- NOTE | 2024-09-14 11:38 | PC.SS ---
Rounding: Pending MRI
--- NOTE | 2024-09-14 12:48 | XR_ITS ---
Examinations: MRA brain with intravenous contrast. MRA neck with intravenous contrast Date and time of exam: 13 hours Indications: Sudden onset vision loss left eye 4:00 PM September 13, 2024 Technique: Multiple axial and sagittal images of the brain have been obtained Siemens high-resolution 1.5 Nichole short bore scanner is utilized. Contrast images have been obtained post intravenous 20 cc Gadolinium. . Angiographic images of neck and brain are obtained post contrast. 3-D post processing performed, including brain, extracranial neck arterial maximum intensity projections Findings: No common carotid carotid bifurcation or internal carotid artery stenoses Mildly dominant right vertebral artery no critical vertebral artery stenoses Petrous juxtasellar supraclinoid portions internal carotid arteries intact M1 segments middle cerebral arteries middle cerebral artery trifurcation vessels posterior cerebral arteries, anterior cerebral arteries intact There is no diagnostic visualization of the ophthalmic arteries Impression: No cerebral large vessel arterial occlusions, thrombus, dissection or cerebral aneurysm
--- NOTE | 2024-09-14 12:54 | ESPR_ITS ---
Tele Neuro Progress Note Progress Note Date 09/14/24 Most Recent Vital Signs Last Vital Signs Temp 97.6 F 09/14/24 08:00 Pulse 64 09/14/24 08:00 Resp 21 H 09/14/24 08:00 BP 149/75 H 09/14/24 08:00 Pulse Ox 95 09/14/24 08:00 O2 Del Method Room Air 09/14/24 08:00 Laboratory-Coagulation Panel PT 10.9 Seconds (9.0-12.2) 09/13/24 18:10 INR 1.0 (0.9-1.3) 09/13/24 18:10 APTT 27.1 Seconds (22.0-36.0) 09/13/24 18:10 Progress Note Narrative [facility] Tele[facility]urology Progress Note Date of Service 09/14/2024 Presentation: Based on previous neurology note(s)?? : ?73 years old man with hypertension and Hyperlipidemia/Hypercholesterolemia , presented with transient left eye vision loss. Initial NIHSS 0 Not on Antiplatelet therapy or anticoagulation prior to admission? Interval history: 09/14/2024: symptoms resolved Impression: Transient Left eye vision loss (amaurosis fugax) Recommendations: (Primary Team to order Controlled Medications) Unless specifically noted I Agree with Impression and Plan from previous Neurology note/consult. 1- Risk factor management If stroke is confirmed: Statin for Goal LDL<70, primary team to order Goal HbA1c<7; Blood pressure management: target normotension. avoid hypotension or rapid decrease in Blood Pressure. 2- Work up and Results: Brain MRI: No Acute Intracranial Abnormality. Head and neck Vascular imaging: CTA Head and Neck: 50-70% right common carotid stenosis. Very poor filling left MCA, radiologist recommended MRA head (I ordered) ECHO: Pending LDL and HbA1c: 140/5.4 Outpatient ophthalmology visit still recommended. 3- Antithrombotic regimen: A- previous recommendation was to continue Aspirin 81mg and plavix 75mg daily, this was not continued after initial bolus dosing and reason was unclear to me and nursing, if there is no contraindication please order Aspirin 81mg and plavix 75mg daily to be continued for 90 days followed by Aspirin monotherapy indefinitely. 4- Nursing recommendations: IV Fluids, avoid dextrose containing fluids Maintain euglycemia Neuro checks every 4 hours for 24 hours and then per shift Head of bed 30 degrees 5- Life Style modifications for stroke prevention should be followed: Diet. Mediterranean diet rich in fruits, vegetables, whole grains, fish, legumes, plant-based oils preferred over animal fats. Reduce sodium intake as directed by primary care physician. Exercise. Aim for 150-minutes of moderate to intense exercise per week in sessions of at least 10 minutes duration as tolerated. Tobacco. Tobacco cessation with counseling and/or pharmacologic management Alcohol. Reduce alcohol consumption as directed by primary care physician. Hormone therapy. Avoid estrogen and testosterone containing medications Sleep. Evaluation and treatment of sleep apnea Return precautions. Seek emergency medical attention if you cannot see, speak, move or feel as you do normally for any abnormal length of time as these may be signs of a stroke [facility] Neurologist will follow up with results. Please contact [facility] Navigator to reach me if further questions/concerns arise. Examination: awake, alert speech no aphasia Extraocular movements intact No visual field loss face symmetric arms no drift (10s) coordination intact in finger to nose Patient / Family was informed the Neurology Consult would occur via [facility] consult by way of interactive audio and video telecommunications and consented to receiving care in this manner. ? Patient is being evaluated for possible acute neurologic impairment and high probability of imminent or life - threatening deterioration. I spent total of 14 minutes providing care to this patient, including time for face to face visit via telemedicine, review of medical records, imaging studies and discussion of findings with providers, the patient and / or family. ? ? Dr Bro Rodríguez ? ? [facility] For Inpatient follow-up with [facility] physician please call [facility] . This is not an outpatient service. Post hospital discharge, please contact hospital directly. ? Please do not communicate with [facility] physicians via secure chat. If you have any questions, Please contact [facility]. Please call or reconsult our service if there are any clinical or diagnostic changes. ?
[2024-09-14] MEDS: CLOPIDOGREL BISULFATE 75 MG TABLET PO (13:38)
[2024-09-14] MEDS: ASPIRIN EC 81 MG TABEC PO (13:38)
--- NOTE | 2024-09-14 15:19 | ESPR_ITS ---
<Statement entered by Marcie Anna MD - 09/14/24 15:29> Senior Resident Attestation: I supervised/discussed management plan with resident physician Dr. Dsouza, and was involved in the care of this patient. I personally saw and examined the patient and discussed the assessment and plan with the entire medicine team, including my attending. I agree with the assessment and plan as documented. Patient's care was discussed with attending physician, Dr. Hank Anna MD PGY-3 Documentation for date of: 09/14/24 Subjective Subjective Interval history: Patient seen at bedside. No acute overnight events. The patient is a 73-year-old male with a past medical history of hypertension, hyperlipidemia and anxiety presented to the ED on 09/13/2024 with left monocular vision loss. CTA showed 50 to 70% stenosis in the right common carotid and the bifurcation origin and poor filling of the left MCA. Teleneuro was consulted recommends aspirin and Plavix and follow-up with MRI/MRA. At bedside today, patient reports that symptoms have completely resolved and his peripheral visual field is intact although he does see floaters. Pending results of MRI/MRI and echocardiogram anticipate discharge within 24 hours. Exam Vital Signs Temp Pulse Resp BP Pulse Ox O2 Del Method 97.7 F 63 19 149/75 H 95 Room Air 09/14/24 12:00 09/14/24 12:00 09/14/24 12:00 09/14/24 12:00 09/14/24 12:00 09/14/24 12:00 Narrative Exam GENERAL: AAOX3 NEURO: EDGE STRIPPER grossly intact, moves extremities x4 HEENT: Moist mucosa. Eyes open, symmetrical, & clear CARDIO: No chest pain on palpation. Heart RRR, no obvious murmurs PULM: No noted coughing/dyspnea. Lungs CTA B/L GI: Abdomen soft, nondistended, no pain on palpation. BSx4 URO/CAREER DEVELOPMENT COORDINATOR:: No further abnormalities noted. SKIN/MSK/EXT: No wounds/rashes/edema/amputations, no pain on palpation. Pedal pulses present B/L Detailed Eye Exam Visual acuity: Visual Acuity Visual Acuity Uncorrected [ 20/20 Bilateral] Visual Acuity Uncorrected [ 20/20 Right] Visual Acuity Uncorrected [ 20/100 Left] Visual Acuity Corrected [ 20/20 Bilateral] Visual Acuity Corrected [Right 20/25 ] Visual Acuity Corrected [Left] 20/70 Objective Labs 09/14/24 06:07 09/14/24 06:07 Labs: Laboratory Results - last 24 hr 09/13/24 09/13/24 09/13/24 18:10 18:22 20:08 WBC 8.5 8.9 RBC 5.55 5.73 Hgb 16.3 H 16.7 H Hct 47.5 48.6 MCV 86 85 MCH 29.4 29.1 MCHC 34.3 34.4 RDW Std Deviation 41.0 40.2 Plt Count 211 215 Neut % (Auto) 53 53 Lymph % (Auto) 31 32 Stewart % (Auto) 13 H 11 Eos % (Auto) 3 3 Baso % (Auto) 1 1 Neut # (Auto) 4.5 4.7 Lymph # (Auto) 2.7 2.8 Stewart # (Auto) 1.1 H 1.0 H Eos # (Auto) 0.2 0.3 Baso # (Auto) 0.0 0.1 Immature Gran # (Auto) 0.05 H 0.04 H Absolute Nucleated RBC 0.00 0.00 Immature Gran % 1 H 1 H Nucleated RBC % 0 0 PT 10.9 INR 1.0 APTT 27.1 Sodium 138 Potassium 4.1 Chloride 106 Carbon Dioxide 26.2 Anion Gap 6 L BUN 14 Creatinine 1.3 Estim Creat Clear Calc 61.9 eGFR 57 L BUN/Creatinine Ratio 11 L Glucose [address] Glu mg/dL Hemoglobin A1c Calculated Osmolality 276 Calcium 10.1 Corrected Calcium 10.1 Phosphorus Magnesium Total Bilirubin 0.5 AST 13 ALT 30 Alkaline Phosphatase 133 H Troponin I < 0.020 Total Protein 7.7 Albumin 4.6 Globulin 3.1 Albumin/Globulin Ratio 1.5 Triglycerides Cholesterol LDL Cholesterol, Calc HDL Cholesterol Cholesterol/HDL Ratio TSH Ur Collection Type Clean Catch Urine Color Yellow Urine Clarity Clear Urine pH 6.0 Ur Specific [place] 1.022 Urine Protein 1+ A Urine Glucose (UA) Negative Urine Ketones Negative Urine Blood Negative Urine Nitrite Negative Urine Bilirubin Negative Urine Urobilinogen (Auto) Negative Ur Leukocyte Esterase Negative Urine RBC 2 Urine WBC 1 Ur Squamous Epith Cells 1 Urine Bacteria None Hyaline Casts < 1 09/14/24 06:07 WBC 6.8 RBC 5.34 Hgb 15.6 Hct 46.2 MCV 87 MCH 29.2 MCHC 33.8 RDW Std Deviation 41.3 Plt Count 178 D Neut % (Auto) 50 Lymph % (Auto) 36 Stewart % (Auto) 11 Eos % (Auto) 3 Baso % (Auto) 1 Neut # (Auto) 3.4 Lymph # (Auto) 2.4 Stewart # (Auto) 0.7 Eos # (Auto) 0.2 Baso # (Auto) 0.0 Immature Gran # (Auto) 0.02 H Absolute Nucleated RBC 0.00 Immature Gran % 0 Nucleated RBC % 0 PT INR APTT Sodium 137 Potassium 3.7 Chloride 106 Carbon Dioxide 24.9 Anion Gap 6 L BUN 13 Creatinine 1.1 Estim Creat Clear Calc 74.6 eGFR > 60 BUN/Creatinine Ratio [address] Glu mg/dL 108 Hemoglobin A1c 5.4 Calculated Osmolality 274 L Calcium 10.0 Corrected Calcium 10.0 Phosphorus 3.2 Magnesium 2.0 Total Bilirubin 0.8 AST 16 ALT 26 Alkaline Phosphatase 107 D Troponin I Total Protein 7.3 Albumin 4.4 Globulin 2.9 Albumin/Globulin Ratio 1.5 Triglycerides 245 H Cholesterol 228 H LDL Cholesterol, Calc 140 H HDL Cholesterol 39 L Cholesterol/HDL Ratio 5.8 TSH 3.25 Ur Collection Type Urine Color Urine Clarity Urine pH Ur Specific [place] Urine Protein Urine Glucose (UA) Urine Ketones Urine Blood Urine Nitrite Urine Bilirubin Urine Urobilinogen (Auto) Ur Leukocyte Esterase Urine RBC Urine WBC Ur Squamous Epith Cells Urine Bacteria Hyaline Casts Quality Measures Quality Measures VTE prophylaxis Advance care planning discussed with:: patient Assessment & Plan Assessment Current Active Medications: Generic Name Dose Route Start Last Admin Trade Name Freq PRN Reason Stop Dose Admin Acetaminophen 650 mg 09/13/24 21:54 Acetaminophen 325 Mg Tablet PO 10/13/24 21:53 Q6H PRN Fever >101.5 Acetaminophen 650 mg 09/13/24 21:54 Acetaminophen 325 Mg Tablet PO 10/13/24 21:53 Q6H PRN PAIN SCALE 1-3 (mild Aspirin 81 mg 09/14/24 13:15 09/14/24 13:38 Aspirin Ec 81 Mg Tabec PO 10/14/24 13:14 81 mg QDAY MASON Administration Atorvastatin Calcium 80 mg 09/14/24 21:00 Atorvastatin Calcium 20 Mg Tablet PO 10/14/24 20:59 HS MASON Clopidogrel Bisulfate 75 mg 09/14/24 13:15 09/14/24 13:38 Clopidogrel Bisulfate 75 Mg Tablet PO 10/14/24 13:14 75 mg QDAY MASON Administration Diphenhydramine HCl 25 mg 09/14/24 09:35 09/14/24 09:49 Diphenhydramine Inj 50 Mg/Ml Vial IVP 10/14/24 09:34 25 mg X1 PRN Administration AGITATION OR ANXIETY Heparin Sodium (Porcine) 5,000 unit 09/13/24 22:00 09/14/24 14:20 Heparin Sod Inj 5000 Unit/Ml Vial SC 09/27/24 21:59 Not Given Q8HR MASON Ondansetron HCl 4 mg 09/13/24 21:54 Ondansetron Inj 2 Mg/Ml Inj 2 Ml IV 10/13/24 21:53 Q6H PRN NAUSEA OR VOMITING Protocol Pantoprazole Sodium 40 mg 09/14/24 09:00 09/14/24 09:10 Pantoprazole 40 Mg Tablet PO 10/14/24 08:59 40 mg QDAY MASON Administration Plan Summary: The patient is a 73-year-old male patient with significant medical history for hypertension, hyperlipidemia and anxiety came to ED for left vision loss. CTA showed 50 to 70% stenosis in the right common carotid and the bifurcation origin and poor filling of the left MCA. Patient admitted for stroke workup. #Acute CVA vs TIA #Amaurosis fugax Patient presented with painless left vision loss that started at 4 PM, lasted for about 4hrs and started resolving slowly Head CT negative for acute hemorrhage or midline shift Head neck CTA indicated: 50-70% stenosis right common carotid carotid bifurcation in origin right internal carotid arteries, Very poor filling of left middle cerebral artery branches In ED, teleneuro consulted, recommends to follow up with MRI/MRA. Patient loaded with aspirin and Plavix Lipid panel, LDL-140, trig-245 A1c-5.4, TSH normal. Plan: -Continue Plavix 70 mg, ASA 81 mg, atorvastatin 80 mg -TTE with bubble study pending -Pending repeat MRI/MRA -Speech therapy and physical therapy ordered -Brain MRI w/o contrast ordered #Hypertension Patient's blood pressure is controlled on amlodipine, nebivolol and losartan- hydrochlorothiazide Restart home meds if indicated #Hyperlipidemia At home, he is on gemfibrozil 600 mg p.o. twice daily and niacin 500 mg p.o. daily. Currently on atorvastatin 80 mg daily Health Maintenance Dispo: Patient admitted for stroke workup, echocardiogram with bubble study ordered Diet: Regular diet after bedside swallow DVT/PPx: Heparin GI ppx: Protonix Lines: PIV Code Status: Full code Case was discussed with senior resident Dr Anna PGY-3 and attending physician, Dr Hank Dsouza MD PGY-1 Attending Provider Attestation/Addendum I have discussed and was present for the essential components of the history, physical examination, diagnosis, and treatment plan with the resident. I agree with the patient's care as documented by the resident and amended herein by me. Jean Claude Mckinney DO. Although this document has been carefully reviewed, there may still be some phonetic and other typographical errors. These errors are purely grammatical due to imperfections in the software program and should not be construed in any way to compromise the substance of the patient's medical care during this visit.
[2024-09-14] MEDS: DiphenhydrAMINE 25 MG CAPSULE PO (17:11)
[2024-09-14] MEDS: LORazepam 2 MG/ML VIAL 1 MG IVP (17:11)
[2024-09-14] MEDS: ATORVASTATIN CALCIUM 20 MG TABLET 80 MG PO (20:10)
[2024-09-15] VITALS (7 sets, daily range): BP systolic 142–158; BP diastolic 73–85; PULSE 54–71; RESP 16–98; TEMP 36.3–36.7; O2SAT 97–99; BMI 37.3
[2024-09-15 05:57] LABS: Basophils % (Auto) 1 % (0-2.5); Eosinophils # (Auto) 0.2 Thou/mm3 (0.0-0.5); Eosinophils % (Auto) 3 % (0-10); Hematocrit 45.9 % (41.0-53.0); Hemoglobin 15.5 g/dL (13.5-16.0); Immature Granulocytes % (Auto) 0 % (0-0); Immature Granulocytes Auto 0.02 Thou/mm3 (0.00-0.00); Lymphocytes # (Auto) 2.1 Thou/mm3 (1.0-4.8); Lymphocytes % (Auto) 33 % (10-50); Mean Corpuscular HGB Conc 33.8 g/dl (31.0-37.0); Mean Corpuscular Volume 86 fL (80-100); Monocytes # (Auto) 0.8 Thou/mm3 (0.0-0.8); Monocytes % (Auto) 12 % (0-12); Neutrophils # (Auto) 3.2 Thou/mm3 (1.8-7.7); Neutrophils % (Auto) 51 % (37-80); Nucleated Red Blood Cell % 0 /100 WBC (0); Platelet Count 165 Thou/mm3 (140-440); RDW Standard Deviation 40.5 fL (35.1-43.9); Red Blood Count 5.34 Miln/mm3 (4.50-5.90); White Blood Count 6.3 Thou/mm3 (3.8-10.6)
[2024-09-15 06:18] LABS: Alanine Aminotransferase 30 U/L (10-49); Albumin, Serum 4.3 gm/dL (3.4-4.8); Albumin/Globulin Ratio 1.5 (1.2-2.2); Alkaline Phosphatase 101 U/L (46-116); Anion Gap 6 (7-16); Aspartate Amino Transferase 30 U/L (0-34); BUN/Creatinine Ratio 10 Ratio (12-20); Bilirubin,Total 0.7 mg/dL (0.3-1.2); Blood Urea Nitrogen 10 mg/dL (9-23); Calcium 9.5 mg/dL (8.3-10.6); Calcium (Corrected) 9.5 mg/dL (8.5-10.1); Carbon Dioxide 24.3 mMol/L (20.0-31.0); Chloride 107 mMol/L (98-107); Estimated Creatinine Clearance 82.1 mL/min (>60); Globulin 2.9 gm/dL (2.3-3.5); Glucose 99 mg/dL (74-106); Osmolality,Calculated 272 (275-295); Potassium 4.2 mMol/L (3.4-5.1); Sodium 137 mMol/L (136-145); Total Protein 7.2 gm/dL (5.7-8.2); eGFR > 60 See Note
[2024-09-15] MEDS: HEPARIN SOD INJ 5000 UNIT/ML VIAL SC (06:26)
[2024-09-15] MEDS: CLOPIDOGREL BISULFATE 75 MG TABLET PO (09:00)
[2024-09-15] MEDS: PANTOPRAZOLE 40 MG TABLET PO (09:00)
[2024-09-15] MEDS: ASPIRIN EC 81 MG TABEC PO (09:00)
[2024-09-15] MEDS: amLODIPine BESYLATE 5 MG TABLET 10 MG PO (09:00)
[2024-09-15] MEDS: NEBIVOLOL HCL 5 MG TABLET (NON-FORMULARY) 20 MG PO (09:43)
--- NOTE | 2024-09-15 11:49 | PD.RESDS ---
Planned Discharge Date 09/15/24 DS: Providers Provider Date of admission: 09/13/24 21:54 Primary care physician: Ariana Trevino MD Admitting Provider: Umer Smart MD Attending Provider on Admission: Umer Smart MD Consults: 09/13/24 19:31 Consult to Neurology / Tele-Neurology Routine Comment: Consulting Provider: [facility] Attending Provider on DC: Emilia Saavedra MD Discharging Provider: Emilia Saavedra MD DS: Diagnosis Discharge Diagnosis (1) Blurred vision, left eye: Status: Acute (2) Hypertension: Status: Acute (3) Acute retinal artery occlusion: Status: Acute Problem List Completed Was Problem List Reviewed/Reconciled?: Yes Hospital Course Hospital Course Hospital course: #Acute CVA vs TIA #Amaurosis fugax #Hypertension #Hyperlipidemia A 73-year-old male patient with significant medical history for hypertension, hyperlipidemia and anxiety came to ED for left vision loss. It lasted for about 4hrs and resolved slowly. CTA showed 50 to 70% stenosis in the right common carotid and the bifurcation origin and poor filling of the left MCA. Head CT negative for acute hemorrhage or midline shift. In ED, teleneuro consulted, recommended to follow up with MRI/MRA. Patient was admitted for stroke workup, and subsequently given aspirin and plavix. LDL-140, trig-245. A1c-5.4, TSH normal. Plavix 70 mg, ASA 81 mg, atorvastatin 80 mg given. Brain MRI with MRA showed negative for acute hemorrhage, mass effect or midline shift, No acute infarct, moderate chronic microvascular white matter change, no cerebral large vessel arterial occlusions or thrombus. Repeat Head MRA showed no cerebral large vessel arterial occlusions, thrombus or dissection. Speech therapy and physical therapy were ordered. Teleneurology recommended transthoracic echo to rule out cardiac thrombus or PFO and follow-up with outpatient neurology to 3 weeks. Patient's left visual field loss resolved. He is hemodynamically stable and ready for discharge home. Patient understands the importance of taking aspirin 81 mg daily and clopidogrel 75 mg once daily for 21 days. He will also take atorvastatin once daily. He will continue home medications previously prescribed. He will follow-up with PCP in 1 to 2 weeks and neurology in 1-2 weeks. Patient informed to obtain referral for echocardiogram with bubble study for complete stroke workup. He will return to the ED if symptoms worsen. Discussed case with my attending Dr. Mckinney. Thank you, Emilia Saavedra, PGY-2 Time Spent with Patient Time attestation: Total time spent providing and/or coordinating discharge services: Time spent: Greater than 30 minutes Exam Vital Signs Temp Pulse Resp BP Pulse Ox O2 Del Method 97.3 F 68 20 158/85 H 97 Room Air 09/15/24 08:00 09/15/24 09:43 09/15/24 08:00 09/15/24 09:43 09/15/24 08:00 09/15/24 08:00 Narrative Exam GENERAL: Well-developed, well-groomed, in no acute distress. HEENT: Moist mucosa. Eyes open, symmetrical, & clear CARDIO: No chest pain on palpation. Heart RRR, no obvious murmurs PULM: No noted coughing/dyspnea. Lungs CTA B/L GI: Abdomen soft, nondistended, no pain on palpation. 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 2+ dorsalis pedis pulses pulses present B/L Detailed Eye Exam Visual acuity: Visual Acuity Visual Acuity Uncorrected [ 20/20 Bilateral] Visual Acuity Uncorrected [ 20/20 Right] Visual Acuity Uncorrected [ 20/100 Left] Visual Acuity Corrected [ 20/20 Bilateral] Visual Acuity Corrected [Right 20/25 ] Visual Acuity Corrected [Left] 20/70 Discharge Plan Plan Patient Disposition: HOME (Self Care) Patient condition on transfer: Stable Care Plan Goals: Please take aspirin 81 mg and clopidogrel 75 mg once daily for 21 days. Take Atorvastatin once daily. Please continue home medications as previously prescribed. Please follow-up with primary care provider in 1 to 2 weeks. Please obtain referral for Echocardiogram with Bubble study to complete stroke workup. If symptoms resume, or recur please return to the ED. Prescriptions/Referrals Prescriptions/Med Rec: New aspirin 81 mg Tablet,Delayed Release (Dr/Ec) 81 mg PO QDAY Qty: 30 1RF atorvastatin 20 mg Tablet 80 mg PO HS Qty: 30 1RF clopidogrel 75 mg tablet 75 mg PO QDAY Qty: 21 0RF Continued losartan-hydrochlorothiazide 100-25 mg tablet 1 tab PO QDAY amlodipine [Norvasc] 10 MG tablet 10 mg PO QDAY Qty: 0 niacin 500 mg Capsule, Extended Release 500 mg PO QDAY gemfibrozil 600 mg Tablet 600 mg PO BID nebivolol [Bystolic] 20 mg Tablet 20 mg PO QDAY Referrals: Ariana Trevino MD [Primary Care Provider] - Patient/Caregiver Discharge Instructions Education Materials: What Is a TIA? Print Language: Pashto Stand Alone Forms: Ailyn Award Info., Patient Portal Info Letter, Work/Release Restrictions Discharge Order Discharge Orders: Discharge (Routine); Ordered 09/15/24 Ordered By: Olivia Royal Quality Discharge Quality Measures VTE prophylaxis Attestestation Attestation I have discussed and was present for the essential components of the discharge history, physical examination, diagnosis, and discharge treatment plan with the resident. I agree with the patient's discharge care as documented by the resident and amended herein by me. Jean Claude Mckinney DO. The patient understood all discharge instructions, all questions were answered satisfactorily. The patient was instructed to return to the Emergency Department is symptoms worsened or persisted. Patient presently discharged on aspirin and Plavix for TIA, will continue both medications for 90 days then transition to aspirin alone. Echocardiogram not performed on this visit, patent patient was adamant he was leaving today despite recommendations of having echo with bubble study performed. We will discharge the patient however he will need an outpatient echocardiogram to assess for any cardioembolic source. All questions were answered, the patient was stable, afebrile, tolerating p.o. intake and ambulatory at time of discharge. Although this document has been carefully reviewed, there may still be some phonetic and other typographical errors. These errors are purely grammatical due to imperfections in the software program and should not be construed in any way to compromise the substance of the patient's medical care during this visit.
--- NOTE | 2024-09-15 11:59 | PD.TNEUROPRO ---
Tele Neuro Progress Note Progress Note Date 09/15/24 Most Recent Vital Signs Last Vital Signs Temp 97.3 F 09/15/24 08:00 Pulse 68 09/15/24 09:43 Resp 20 09/15/24 08:00 BP 158/85 H 09/15/24 09:43 Pulse Ox 97 09/15/24 08:00 O2 Del Method Room Air 09/15/24 08:00 Laboratory-Coagulation Panel PT 10.9 Seconds (9.0-12.2) 09/13/24 18:10 INR 1.0 (0.9-1.3) 09/13/24 18:10 APTT 27.1 Seconds (22.0-36.0) 09/13/24 18:10 Progress Note Narrative [facility] Tele[facility]urology Progress Note Date of Service 09/15/2024 Presentation: Based on previous neurology note(s) : 73 years old man with hypertension and Hyperlipidemia/Hypercholesterolemia , presented with transient left eye vision loss. Initial NIHSS 0 Not on Antiplatelet therapy or anticoagulation prior to admission? Interval history: 09/14/2024: symptoms resolved 09/15: nursing does not report any significant new events overnight. Impression: Transient Left eye vision loss (amaurosis fugax) Recommendations: (Primary Team to order Controlled Medications) Unless specifically noted I Agree with Impression and Plan from previous Neurology note/consult. 1- Risk factor management If stroke is confirmed: Statin for Goal LDL<70, primary team to order Goal HbA1c<7; Blood pressure management: target normotension. avoid hypotension or rapid decrease in Blood Pressure. 2- Work up and Results: Brain MRI: No Acute Intracranial Abnormality. Head and neck Vascular imaging: CTA Head and Neck: 50-70% right common carotid stenosis. Very poor filling left MCA, radiologist recommended MRA head which did not show any significant narrowing ECHO: Pending , primary team to review results. can be done as outpatient LDL and HbA1c: 140/5.4 Outpatient ophthalmology visit still recommended. 3- Antithrombotic regimen: A- previous recommendation was to continue Aspirin 81mg and plavix 75mg daily, for 90 days followed by Aspirin monotherapy indefinitely. 4- Nursing recommendations: IV Fluids, avoid dextrose containing fluids Maintain euglycemia Neuro checks every 4 hours for 24 hours and then per shift Head of bed 30 degrees 5- Life Style modifications for stroke prevention should be followed: Diet. Mediterranean diet rich in fruits, vegetables, whole grains, fish, legumes, plant-based oils preferred over animal fats. Reduce sodium intake as directed by primary care physician. Exercise. Aim for 150-minutes of moderate to intense exercise per week in sessions of at least 10 minutes duration as tolerated. Tobacco. Tobacco cessation with counseling and/or pharmacologic management Alcohol. Reduce alcohol consumption as directed by primary care physician. Hormone therapy. Avoid estrogen and testosterone containing medications Sleep. Evaluation and treatment of sleep apnea Return precautions. Seek emergency medical attention if you cannot see, speak, move or feel as you do normally for any abnormal length of time as these may be signs of a stroke Neurology will sign off. Please notify neurology if TTE shows cardiac thrombus or PFO. Follow up with outpatient neurology in 2-3 weeks. Please contact [facility] Navigator to reach me if further questions/concerns arise. Examination: awake, alert speech no aphasia Extraocular movements intact No visual field loss face symmetric arms no drift (10s) coordination intact in finger to nose Patient / Family was informed the Neurology Consult would occur via Tele[facility] consult by way of interactive audio and video telecommunications and consented to receiving care in this manner. Patient is being evaluated for possible acute neurologic impairment and high probability of imminent or life - threatening deterioration. I spent total of 13 minutes providing care to this patient, including time for face to face visit via telemedicine, review of medical records, imaging studies and discussion of findings with providers, the patient and / or family. Dr Bro Rodríguez [facility] For Inpatient follow-up with [facility] physician please call [facility] . This is not an outpatient service. Post hospital discharge, please contact hospital directly. Please do not communicate with [facility] physicians via secure chat. If you have any questions, Please contact [facility]. Please call or reconsult our service if there are any clinical or diagnostic changes.
--- NOTE | 2024-09-15 13:17 | PC.SS ---
Rounding: Pending Tele Neuro rounds and DC after
== END 2024-09-15 13:46 | disposition home or self-care (01) ==
LOC: SERX 20:58 → SERHOLD 22:17 → S2NX 22:42
PROVIDERS: Internal Medicine; Nurse Practitioner Primary Care; Admitting Provider Internal Medicine; Emergency Provider Emergency Medicine; PCP Family Medicine; Visit Provider Internal Medicine
DX: G45.3 Amaurosis fugax (principal); E78.00 Pure hypercholesterolemia, unspecified; F12.90 Cannabis use, unspecified, uncomplicated; I10 Essential (primary) hypertension; I44.0 Atrioventricular block, first degree; E78.5 Hyperlipidemia, unspecified
CPT/HCPCS: 36415; 70450; 70496; 70498; 70544; 70545; 80053; 80061; 81001; 83036; 83735; 84100; 84443; 84484; 85025; 85610; 85730; 92610; 93005; 94762; 96372; 99291; A4649; G0378; J1200; J1643; J2060; Q9967; A9270; J1644

== ENCOUNTER → 2024-11-22 | Outpatient (CLI) | payer OTHER, SELFPAY ==
[2024-11-22 09:39] LABS: Basophils % (Auto) 1 % (0-2.5); Eosinophils # (Auto) 0.2 Thou/mm3 (0.0-0.5); Eosinophils % (Auto) 4 % (0-10); Hematocrit 43.8 % (41.0-53.0); Hemoglobin 14.9 g/dL (13.5-16.0); Immature Granulocytes % (Auto) 0 % (0-0); Immature Granulocytes Auto 0.02 Thou/mm3 (0.00-0.00); Lymphocytes # (Auto) 1.6 Thou/mm3 (1.0-4.8); Lymphocytes % (Auto) 29 % (10-50); Mean Corpuscular Hemoglobin 28.9 pg (25.0-35.0); Mean Corpuscular Volume 85 fL (80-100); Monocytes # (Auto) 0.7 Thou/mm3 (0.0-0.8); Monocytes % (Auto) 12 % (0-12); Neutrophils % (Auto) 54 % (37-80); Nucleated Red Blood Cell % 0 /100 WBC (0); Platelet Count 201 Thou/mm3 (140-440); RDW Standard Deviation 41.3 fL (35.1-43.9); Red Blood Count 5.16 Miln/mm3 (4.50-5.90); White Blood Count 5.6 Thou/mm3 (3.8-10.6)
[2024-11-22 09:57] LABS: Alanine Aminotransferase 31 U/L (10-49); Albumin, Serum 4.7 gm/dL (3.4-4.8); Albumin/Globulin Ratio 1.7 (1.2-2.2); Alkaline Phosphatase 123 U/L (46-116); Anion Gap 8 (7-16); Aspartate Amino Transferase 19 U/L (0-34); BUN/Creatinine Ratio 16 Ratio (12-20); Bilirubin,Total 0.6 mg/dL (0.3-1.2); Blood Urea Nitrogen 18 mg/dL (9-23); Calcium 9.9 mg/dL (8.3-10.6); Calcium (Corrected) 9.9 mg/dL (8.5-10.1); Carbon Dioxide 25.9 mMol/L (20.0-31.0); Cardiac Risk Estimate 3.9 RATIO (4.0-6.7); Chloride 107 mMol/L (98-107); Cholesterol 146 mg/dL (132-200); Creatinine (Component) 1.1 mg/dL (0.6-1.3); Globulin 2.8 gm/dL (2.3-3.5); Glucose 126 mg/dL (74-106); HDL Cholesterol 37 mg/dL (40-60); LDL Cholesterol,Calculated 76 mg/dL (0-130); Osmolality,Calculated 285 (275-295); Sodium 141 mMol/L (136-145); Total Protein 7.5 gm/dL (5.7-8.2); Triglycerides 166 mg/dL (30-150); eGFR > 60 See Note
[2024-11-27 06:46] LABS: Testosterone,Total* 145 ng/dL (250-1100)
== END | disposition home or self-care (01) ==
LOC: COPL 08:31
PROVIDERS: PCP Family Medicine; Referring Provider Family Medicine; Visit Provider Family Medicine
DX: I10 Essential (primary) hypertension (principal); E78.2 Mixed hyperlipidemia; F52.21 Male erectile disorder
CPT/HCPCS: 36415; 80053; 80061; 84403; 85025

== ENCOUNTER → 2025-01-01 | Outpatient (CLI) | payer OTHER, SELFPAY ==
--- NOTE | 2025-01-01 07:00 | EKG_ITS ---
[facility] Test Date: 2025-01-01 Pat Name: JM JOHNSON Department: Room: - Gender: Male Health Data Administrator: MAE : [id number] Requested By: Donnie Casarez Order Number: [id number] Reading MD: Donnie Casarez Measurements Intervals [place] Rate: 56 P: -29 [place]: 175 QRS: -59 QRSD: 175 T: -2 QT: 443 QTc: 431 Interpretive Statements SINUS BRADYCARDIA RIGHT BUNDLE BRANCH BLOCK [120+ ms QRS DURATION, UPRIGHT V1, 40+ ms S IN I/aVL/V4/V5/V6] LEFT ANTERIOR FASCICULAR BLOCK [QRS AXIS <= -45, QR IN I, RS IN II] VOLTAGE CRITERIA FOR LVH [MEETS CRITERIA IN ONE OF: R(aVL), S(V1), R(V5), R(V5/V6)+S(V1)] POSSIBLE SEPTAL MYOCARDIAL INFARCTION , OF INDETERMINATE AGE [30 ms Q WAVE IN V1/V2] Compared to ECG 09/13/2024 17:57:43 Right bundle-branch block now present Left anterior fascicular block now present Myocardial infarct finding now present Sinus rhythm no longer present First degree AV block no longer present T-wave abnormality no longer present /store/S0/[id number]/ecg/[id number].pdf
[2025-01-01 12:18] LABS: Basophils # (Auto) 0.1 Thou/mm3 (0.0-0.2); Basophils % (Auto) 1 % (0-2.5); Eosinophils # (Auto) 0.2 Thou/mm3 (0.0-0.5); Eosinophils % (Auto) 3 % (0-10); Hematocrit 44.9 % (41.0-53.0); Hemoglobin 15.2 g/dL (13.5-16.0); Immature Granulocytes % (Auto) 1 % (0-0); Immature Granulocytes Auto 0.03 Thou/mm3 (0.00-0.00); Lymphocytes # (Auto) 1.7 Thou/mm3 (1.0-4.8); Lymphocytes % (Auto) 27 % (10-50); Mean Corpuscular HGB Conc 33.9 g/dl (31.0-37.0); Mean Corpuscular Hemoglobin 29.1 pg (25.0-35.0); Mean Corpuscular Volume 86 fL (80-100); Monocytes # (Auto) 0.8 Thou/mm3 (0.0-0.8); Monocytes % (Auto) 11 % (0-12); Neutrophils # (Auto) 3.8 Thou/mm3 (1.8-7.7); Neutrophils % (Auto) 58 % (37-80); Nucleated Red Blood Cell % 0 /100 WBC (0); Platelet Count 206 Thou/mm3 (140-440); RDW Standard Deviation 41.7 fL (35.1-43.9); Red Blood Count 5.23 Miln/mm3 (4.50-5.90); White Blood Count 6.6 Thou/mm3 (3.8-10.6)
[2025-01-01 12:45] LABS: Anion Gap 7 (7-16); BUN/Creatinine Ratio 14 Ratio (12-20); Blood Urea Nitrogen 17 mg/dL (9-23); Calcium 9.7 mg/dL (8.3-10.6); Carbon Dioxide 26.4 mMol/L (20.0-31.0); Chloride 109 mMol/L (98-107); Creatinine (Component) 1.2 mg/dL (0.6-1.3); Glucose 100 mg/dL (74-106); Osmolality,Calculated 284 (275-295); Potassium 4.2 mMol/L (3.4-5.1); Sodium 142 mMol/L (136-145); eGFR > 60 See Note
[2025-01-01 13:01] LABS: Prothrombin Time 10.9 Seconds (9.0-12.2)
== END | disposition home or self-care (01) ==
LOC: SLAB 01-03 08:10
PROVIDERS: PCP Family Medicine; Referring Provider Internal Medicine Cardiovascular Disease; Visit Provider Internal Medicine Cardiovascular Disease
DX: I65.21 Occlusion and stenosis of right carotid artery (principal)
CPT/HCPCS: 36415; 80048; 85025; 85610; 85730; 93005

== ENCOUNTER 2025-01-07 10:45 | Day surgery (SDC) | payer OTHER, SELFPAY ==
[2025-01-07] VITALS (10 sets, daily range): BP systolic 119–186; BP diastolic 57–78; PULSE 54–61; RESP 13–18; TEMP 36.4–36.7; O2SAT 95–98; BMI 35.7
--- NOTE | 2025-01-07 12:59 | PC.NURSE ---
1259 patient is awake, alert, breathing unlabored, s/p arch carotid angiogram, dressing to right groin dry with no bleeding, all pulses strong, NIH scale comleted, no s/s of stroke. Report received from James FELDER, patient to recover for 3hrs and resume home medications.
--- NOTE | 2025-01-07 13:44 | PC.NURSE ---
1331 report given to James FELDER
--- NOTE | 2025-01-08 10:16 | ESOP_ITS ---
RE: JM JOHNSON : 1950 DATE OF OPERATION: 01/07/2025 PROCEDURE PERFORMED: 1. Selective catheterization of aortic arch and aortic arch angiogram. 2. Selective cannulation of right common carotid artery, right carotid and cerebral angiogram. 3. Selective cannulation of the left common carotid artery, carotid and cerebral angiogram. 4. Selective catheterization of abdominal aorta and abdominal aorta and pelvic angiogram. DIAGNOSES: Carotid stenosis, transient ischemic attack, and abdominal aortic aneurysm. HISTORY AND INDICATIONS: The patient, Mr. Johnson, is a 75-year-old male with a past medical history of hypertension, hypercholesterolemia, has been doing well until recently, he has had transient ischemic attack, amaurosis fugax, left eye. Carotid ultrasound showed evidence of soft plaque involving the right internal carotid artery, possibly 70% stenosis. MRI scan showed also the patient with 70% stenosis and conflicting evidence, CT scan was negative. Because of carotid stenosis and conflicting reports with an ultrasound and radiology imaging, carotid angiogram was recommended prior to recommending possible carotid endarterectomy. The patient also incidentally found to have abdominal aortic aneurysm. Hence, abdominal angiogram was performed at the same time. DESCRIPTION OF PROCEDURE: The patient was brought to cardiac catheterization laboratory. He was given 2 mg Versed and 50 mcg of Fentanyl for conscious sedation. Right femoral approach was taken. Right femoral artery was cannulated by micropuncture technique. Ultrasound guidance was used and a 6-Haitian sheath was reduced. There was evidence of iliac stenosis. Hence, a glide wire was used to get across the lesion in the common iliac artery. A 5 Haitian pigtail catheter was used to perform aortic arch angiogram and digital subtraction method was used. Right common carotid artery was cannulated by Garcia 2 diagnostic catheter and carotid and cerebral angiogram performed. Left common carotid artery was cannulated by Garcia 2, 5 Haitian diagnostic catheter . The catheter was pulled down to the distal abdominal aorta, aortic angiogram performed and a pelvic angiogram performed to assess the iliac arteries as well as distal abdominal aorta. The patient tolerated the procedure well with no complications. Findings are as follows: Abdominal aorta angiogram showed evidence of infrarenal abdominal aortic aneurysm just before the bifurcation approximately 4 cm in diameter. The right common iliac artery showed [id number] disease in the proximal segment, but not severe. Left common iliac artery is normal. Aortic arch angiogram showed the type A aortic arch and origin of right common carotid artery is seen well and left common carotid artery, subclavian artery also seen well. The right vertebral artery appears normal. No significant stenosis. Left vertebral artery, left subclavian artery also appear normal. The carotid angiogram showed the following. The right innominate artery is very tortuous. Right common carotid artery is normal. Right internal carotid artery showed evidence of mildly associated plaque with only approximately 20% to 30% stenosis. Right internal carotid artery, intracranial portion is normal. Anterior and middle cerebral artery is normal. Left common carotid artery is normal. Left internal carotid artery showed evidence of an eccentric plaque with approximately 30% to 40% stenosis in the left internal carotid artery. Intracranial portion of the internal carotid artery is normal. Left anterior middle cerebral artery is normal. Venous phase is normal. No evidence of AV malformation. SUMMARY OF FINDINGS: 1. A 4 cm intraretinal abdominal aortic aneurysm. 2. Rapn-yl-wbaudtis plaque involving both internal carotid arteries, less than 30% stenosis of the right internal carotid artery and less than 40% stenosis of the left internal carotid artery. RECOMMENDATIONS: The patient was recommended to continue medical management, hypertension controlled. CT scan of the abdomen will be performed for more detailed assessment of infrarenal abdominal aorta and aortic aneurysm. DT: 08:34:20 TT: 09:28:00 Ref: [id number] - TID: [id number]
== END 2025-01-07 15:25 | disposition home or self-care (01) ==
PROVIDERS: PCP Family Medicine; Referring Provider Internal Medicine Cardiovascular Disease; Visit Provider Internal Medicine Cardiovascular Disease
PROC: (CPT 75600; principal; 2025-01-07 11:30)
DX: I65.23 Occlusion and stenosis of bilateral carotid arteries (principal); I71.40 Abdominal aortic aneurysm, without rupture, unspecified; Z86.73 Personal history of transient ischemic attack (TIA), and cerebral infarction without residual deficits; I10 Essential (primary) hypertension; E78.00 Pure hypercholesterolemia, unspecified
CPT/HCPCS: 36224; 36245; 36226; 75625; 99152; 99153; A4649; C1751; C1769; C1894; J0171; J0461; J1643; J2250; J2310; J2371; J3010; J3490; Q9967

== ENCOUNTER → 2025-02-20 | Outpatient (CLI) | payer OTHER, SELFPAY ==
[2025-02-20 08:35] LABS: Basophils % (Auto) 1 % (0-2.5); Eosinophils # (Auto) 0.2 Thou/mm3 (0.0-0.5); Eosinophils % (Auto) 4 % (0-10); Hematocrit 48.5 % (41.0-53.0); Hemoglobin 16.1 g/dL (13.5-16.0); Immature Granulocytes % (Auto) 0 % (0-0); Immature Granulocytes Auto 0.02 Thou/mm3 (0.00-0.00); Lymphocytes # (Auto) 1.8 Thou/mm3 (1.0-4.8); Lymphocytes % (Auto) 31 % (10-50); Mean Corpuscular HGB Conc 33.2 g/dl (31.0-37.0); Mean Corpuscular Hemoglobin 28.9 pg (25.0-35.0); Mean Corpuscular Volume 87 fL (80-100); Monocytes # (Auto) 0.7 Thou/mm3 (0.0-0.8); Monocytes % (Auto) 12 % (0-12); Neutrophils # (Auto) 3.1 Thou/mm3 (1.8-7.7); Neutrophils % (Auto) 52 % (37-80); Nucleated Red Blood Cell % 0 /100 WBC (0); Platelet Count 176 Thou/mm3 (140-440); RDW Standard Deviation 42.6 fL (35.1-43.9); Red Blood Count 5.57 Miln/mm3 (4.50-5.90)
[2025-02-20 10:54] LABS: Glucose Estimated Average 111 mg/dL (80-131); Hemoglobin A1C 5.5 % Hgb (4.8-6.0)
[2025-02-20 11:06] LABS: Alanine Aminotransferase 26 U/L (10-49); Albumin, Serum 4.6 gm/dL (3.4-4.8); Albumin/Globulin Ratio 1.5 (1.2-2.2); Alkaline Phosphatase 106 U/L (46-116); Anion Gap 8 (7-16); Aspartate Amino Transferase 21 U/L (0-34); BUN/Creatinine Ratio 14 Ratio (12-20); Bilirubin,Total 1.2 mg/dL (0.3-1.2); Blood Urea Nitrogen 17 mg/dL (9-23); Calcium 10.2 mg/dL (8.3-10.6); Calcium (Corrected) 10.2 mg/dL (8.5-10.1); Cardiac Risk Estimate 4.2 RATIO (4.0-6.7); Chloride 104 mMol/L (98-107); Cholesterol 192 mg/dL (132-200); Creatinine (Component) 1.2 mg/dL (0.6-1.3); Glucose 102 mg/dL (74-106); HDL Cholesterol 46 mg/dL (40-60); LDL Cholesterol,Calculated 104 mg/dL (0-130); Osmolality,Calculated 279 (275-295); Phosphorous 3.2 mg/dL (2.4-5.1); Potassium 4.6 mMol/L (3.4-5.1); Sodium 139 mMol/L (136-145); Total Protein 7.6 gm/dL (5.7-8.2); Triglycerides 212 mg/dL (30-150); eGFR > 60 See Note
[2025-02-26 07:04] LABS: Testosterone,Total* 174 ng/dL (250-1100)
== END | disposition home or self-care (01) ==
LOC: COPL 07:32
PROVIDERS: PCP Family Medicine; Referring Provider Family Medicine; Visit Provider Internal Medicine Cardiovascular Disease
DX: I10 Essential (primary) hypertension (principal); R73.01 Impaired fasting glucose; E29.1 Testicular hypofunction; I71.40 Abdominal aortic aneurysm, without rupture, unspecified
CPT/HCPCS: 36415; 80053; 80061; 83036; 84100; 84403; 85025

== ENCOUNTER → 2025-03-12 | Outpatient (CLI) | payer OTHER, SELFPAY ==
--- NOTE | 2025-03-12 09:30 | XR_ITS ---
Examination: CTA abdomen, with intravenous contrast. CTA pelvis, with intravenous contrast. 2-D sagittal and coronal reconstructions. 3-D reconstructions. Date and time of exam: March 12, 2025 0946 hours INDICATIONS: Diagnosis abdominal aortic aneurysm without rupture unspecified one month ago CTDI vol (mgy) 26.4 DLP (MGycm) 736 Technique: Multiple CTA images, 2.0 mm slice thickness, obtained abdomen, pelvis, with the high-resolution 64 slice scanner. 100 cc Isovue-370 is administered intravenously. Sagittal and coronal 2-D reconstructions are obtained. 3-D reconstructions, angiographic images are obtained. 3-D postprocessing, including vascular maximum intensity projections. Low dose protocols were performed. One or more of the following dose reduction techniques were used; automated exposure control, adjustment of the mA and/or KV according to patient size, use of iterative reconstruction technique. Findings: Liver mildly irregular in contour, no focal liver lesions Tiny gallstones No pancreatic or adrenal mass No splenic or adrenal mass No hydronephrosis renal or ureteral calculi Infrarenal abdominal aortic aneurysm AP dimension 4.5 cm, mediolateral dimension 4.3 cm cephalocaudad dimension 5.3 cm Normal appendix Colonic diverticulosis, no diverticulitis Urinary bladder wall is thickened up to 7 mm Prominent osteopenia IMPRESSION: Infrarenal abdominal aortic aneurysm, AP dimension 4.5 cm mediolateral dimension 4.3 cm cephalad caudad dimension 5.3 cm
== END | disposition home or self-care (01) ==
LOC: CCTX 09:23
PROVIDERS: PCP Family Medicine; Referring Provider Internal Medicine Cardiovascular Disease; Visit Provider Internal Medicine Cardiovascular Disease
DX: I71.43 Infrarenal abdominal aortic aneurysm, without rupture (principal)
CPT/HCPCS: 74174; A4649; Q9967

== ENCOUNTER → 2025-04-23 | Outpatient (CLI) | payer OTHER, SELFPAY ==
[2025-04-23 08:38] LABS: Basophils # (Auto) 0.1 Thou/mm3 (0.0-0.2); Basophils % (Auto) 1 % (0-2.5); Eosinophils # (Auto) 0.2 Thou/mm3 (0.0-0.5); Eosinophils % (Auto) 4 % (0-10); Hematocrit 43.2 % (41.0-53.0); Hemoglobin 14.4 g/dL (13.5-16.0); Immature Granulocytes % (Auto) 0 % (0-0); Immature Granulocytes Auto 0.01 Thou/mm3 (0.00-0.00); Lymphocytes # (Auto) 1.8 Thou/mm3 (1.0-4.8); Lymphocytes % (Auto) 35 % (10-50); Mean Corpuscular HGB Conc 33.3 g/dl (31.0-37.0); Mean Corpuscular Volume 87 fL (80-100); Monocytes # (Auto) 0.6 Thou/mm3 (0.0-0.8); Monocytes % (Auto) 12 % (0-12); Neutrophils # (Auto) 2.6 Thou/mm3 (1.8-7.7); Neutrophils % (Auto) 49 % (37-80); Nucleated Red Blood Cell % 0 /100 WBC (0); Platelet Count 185 Thou/mm3 (140-440); Red Blood Count 4.96 Miln/mm3 (4.50-5.90); White Blood Count 5.3 Thou/mm3 (3.8-10.6)
== END | disposition home or self-care (01) ==
LOC: COPL 07:48
PROVIDERS: PCP Family Medicine; Referring Provider Family Medicine; Visit Provider Family Medicine
DX: D45 Polycythemia vera (principal)
CPT/HCPCS: 36415; 85025

== ENCOUNTER → 2025-07-25 | Outpatient (CLI) | payer OTHER, SELFPAY ==
[2025-07-25 09:25] LABS: Basophils # (Auto) 0.0 Thou/mm3 (0.0-0.2); Basophils % (Auto) 0 % (0-2.5); Eosinophils # (Auto) 0.3 Thou/mm3 (0.0-0.5); Eosinophils % (Auto) 5 % (0-10); Hematocrit 42.8 % (41.0-53.0); Hemoglobin 14.4 g/dL (13.5-16.0); Immature Granulocytes Auto 0.03 Thou/mm3 (0.00-0.00); Lymphocytes # (Auto) 2.1 Thou/mm3 (1.0-4.8); Lymphocytes % (Auto) 31 % (10-50); Mean Corpuscular HGB Conc 33.6 g/dl (31.0-37.0); Mean Corpuscular Hemoglobin 29.7 pg (25.0-35.0); Mean Corpuscular Volume 88 fL (80-100); Monocytes # (Auto) 0.7 Thou/mm3 (0.0-0.8); Monocytes % (Auto) 11 % (0-12); Neutrophils # (Auto) 3.7 Thou/mm3 (1.8-7.7); Neutrophils % (Auto) 53 % (37-80); Nucleated Red Blood Cell # 0.00 Thou/mm3 (0.00-0.00); Nucleated Red Blood Cell % 0 /100 WBC (0); Platelet Count 183 Thou/mm3 (140-440); RDW Standard Deviation 41.5 fL (35.1-43.9); Red Blood Count 4.85 Miln/mm3 (4.50-5.90); White Blood Count 6.9 Thou/mm3 (3.8-10.6)
[2025-07-25 09:50] LABS: Cardiac Risk Estimate 3.5 RATIO (4.0-6.7); Cholesterol 132 mg/dL (132-200); HDL Cholesterol 38 mg/dL (40-60); LDL Cholesterol,Calculated 63 mg/dL (0-130); Triglycerides 157 mg/dL (30-150)
[2025-07-31 06:29] LABS: Testosterone,Total* 294 ng/dL (250-1100)
== END | disposition home or self-care (01) ==
LOC: COPL 08:07
PROVIDERS: PCP Family Medicine; Referring Provider Family Medicine; Visit Provider Family Medicine
DX: D45 Polycythemia vera (principal); E29.1 Testicular hypofunction
CPT/HCPCS: 36415; 80061; 84403; 85025